=== PATIENT | male | born 1985 | race American Indian/Alaskan Native ===

== ENCOUNTER 2019-01-30 17:31 | Emergency (ER) | payer MEDICAID ==
[~2019-01-30] VITALS: Ht 188 cm; Wt 104.3 kg
--- NOTE | 2019-01-31 23:22 | EKG ---
[facility] [address] [facility] [place] [address] Signed Normal sinus rhythm Normal ECG No previous ECGs available Confirmed by RUPAL MAIN MD ([id number] on 01/31/2019 11:22:14 PM Electronically Signed By: RUPAL MAIN MD 01/31/19 2322 PATIENT NAME: MATT ARTEAGA Electrocardiogram DATE OF : 85 PHYSICIAN: RUPAL MAIN MD REPORT #: [id number] REPORT IS CONFIDENTIAL AND NOT TO BE RELEASED WITHOUT AUTHORIZATION
== END 2019-01-30 21:31 | disposition home or self-care (01) ==
LOC: ED 17:31
DX: R07.9 Chest pain, unspecified (principal); R10.9 Unspecified abdominal pain; F15.10 Other stimulant abuse, uncomplicated; F11.10 Opioid abuse, uncomplicated; F17.200 Nicotine dependence, unspecified, uncomplicated
CPT/HCPCS: 80053; 83690; 84484; 85025; 93005; 93010; 96360; 99285-25; J7030